=== PATIENT | male | born 1995 | race Caucasian/White ===

== ENCOUNTER 2017-03-27 15:18 | Emergency (ER) | payer OTHER ==
[~2017-03-27] VITALS: Wt 73.8 kg
[2017-03-27] MEDS ORDERED: ONDANSETRON 4 MG INJ IV STA (15:49)
[2017-03-27] MEDS ORDERED: SOD CHLORIDE 0.9% 1,000 ML IV STA (15:49)
[2017-03-27] MEDS ORDERED: LIDOCAINE/MYLANTA 40 ML BTL PO ONE (16:00)
[2017-03-27] MEDS ORDERED: PANTOPRAZOLE 40 MG INJ IV ONE (16:00)
--- NOTE | 2017-03-27 16:03 | ERD ---
ER Documentation Chief Complaint Chief Complaint "LITTLE" BIT OF BLOOD IN STOOL, ABD PAIN HPI This 22-year-old otherwise healthy male who presents the emergency department for complaints of possible blood in his stool and abdominal pain. Patient states that yesterday he ovarian cyst burning epigastric pain with associated bloating, belching and nausea which has improved today. He states that he noticed dark brown colored coffee-ground like substance in his stool 1. Patient states his pain is now a dull, 4 out of 10 burning epigastric pain with associated nausea. States he attempted to treat his symptoms with Tums with only minimal relief today. He denies fever, chills, vomiting. He admits to cigarette smoking and occasional alcohol use. He states he ran a marathon last weekend it exacerbated his symptoms. He denies any use of Pepto-Bismol, or eating red-colored foods in the past 2 days. ROS All systems reviewed and are negative except as per history of present illness. Medications Home Meds Active Scripts Metoclopramide* (Reglan*) 10 Mg Tablet, 10 MG PO Q6 Y for NAUSEA AND/OR VOMITING , #30 TAB Prov:VAN PEREZ PA-C 03/27/17 Omeprazole* (Omeprazole*) 20 Mg Capsule.dr, 20 MG PO DAILY, #30 Prov:VAN PEREZ PA-C 03/27/17 Famotidine* (Pepcid*) 20 Mg Tablet, 20 MG PO BID for 14 Days, TAB Prov:VAN PEREZ PA-C 03/27/17 Allergies Allergies: Coded Allergies: No Known Allergy (Unverified , 03/27/17) Physical Exam Vitals Vital Signs Date Time Temp Pulse Resp B/P Pulse Ox O2 Delivery O2 Flow Rate FiO2 03/27/17 15:26 99.5 91 20 111/64 100 Physical Exam Const: Developed, well-nourished, no acute distress Head: Atraumatic Eyes: Normal Conjunctiva ENT: Normal External Ears, Nose and Mouth. Neck: Full range of motion..~ No meningismus. Resp: Clear to auscultation bilaterally Cardio: Regular rate and rhythm, no murmurs Abd: Soft, diffuse mild tenderness, non distended. Normal bowel sounds Skin: No petechiae or rashes Back: No midline or flank tenderness Ext: No cyanosis, or edema Neur: Awake and alert Psych: Normal Mood and Affect Result Diagram: 03/27/17 1630 03/27/17 1630 Results 24 hrs Laboratory Tests Test 03/27/17 16:30 White Blood Count 10.910^3/ul Red Blood Count 4.9410^6/ul Hemoglobin 15.1g/dl Hematocrit 44.9% Mean Corpuscular Volume 90.9fl Mean Corpuscular Hemoglobin 30.6pg Mean Corpuscular Hemoglobin Concent 33.6g/dl Red Cell Distribution Width 12.6% Platelet Count 51839^3/UL Mean Platelet Volume 10.9fl Neutrophils % 68.9% Lymphocytes % 21.0% Monocytes % 8.6% Eosinophils % 0.8% Basophils % 0.4% Nucleated Red Blood Cells % 0.0/100WBC Neutrophils # 7.510^3/ul Lymphocytes # 2.310^3/ul Monocytes # 0.910^3/ul Eosinophils # 0.110^3/ul Basophils # 0.010^3/ul Nucleated Red Blood Cells # 0.010^3/ul Urine Color YELLOW Urine Clarity SLIGHTLY CLOUDY Urine pH 6.0 Urine Specific [place] 1.023 Urine Ketones NEGATIVEmg/dL Urine Nitrite NEGATIVEmg/dL Urine Bilirubin NEGATIVEmg/dL Urine Urobilinogen NEGATIVEmg/dL Urine Leukocyte Esterase NEGATIVELeu/ul Urine Microscopic RBC 1/HPF Urine Microscopic WBC 1/HPF Urine Bacteria FEW/HPF Urine Mucus FEW/HPF Urine Hemoglobin NEGATIVEmg/dL Urine Glucose NEGATIVEmg/dL Urine Total Protein NEGATIVEmg/dl Sodium Level 145mmol/L Potassium Level 3.7mmol/L Chloride Level 107mmol/L Carbon Dioxide Level 24mmol/L Anion Gap 18 Blood Urea Nitrogen 13mg/dl Creatinine 0.97mg/dl Glucose Level 92mg/dl Calcium Level 9.4mg/dl Total Bilirubin 0.4mg/dl Direct Bilirubin 0.00mg/dl Indirect Bilirubin 0.4mg/dl Aspartate Amino Transf (AST/SGOT) 68IU/L Alanine Aminotransferase (ALT/SGPT) 31IU/L Alkaline Phosphatase 69IU/L Total Protein 8.0g/dl Albumin 5.0g/dl Globulin 3.00g/dl Albumin/Globulin Ratio 1.66 Lipase 57U/L Current Medications Medications (Trade) Dose Ordered Sig/Akin Route PRN Reason Start Time Stop Time Status Last Admin Dose Admin Sodium Chloride (NS) 1,000 ml @ 1,000 mls/hr Q1H STAT IV 03/27/17 15:49 03/27/17 16:48 DC 03/27/17 16:20 Ondansetron HCl (Zofran Inj) 4 mg ONCE STAT IV 03/27/17 15:49 03/27/17 15:53 DC 03/27/17 16:19 Pantoprazole (Protonix Iv) 40 mg ONCE ONCE IV 03/27/17 16:00 03/27/17 16:01 DC 03/27/17 16:19 Miscellaneous Medication (Gi Cocktail (2)) 40 ml ONCE ONCE PO 03/27/17 16:00 03/27/17 16:01 DC 03/27/17 16:19 Procedures/[facility] There is an otherwise healthy 22-year-old male who presents the emergency department for complaints of epigastric pain followed by a small amount of what looked like darkened blood in his stool since today. Upon arrival patient well- appearing and nontoxic. Vital signs reviewed and within normal limits upon arrival. Physical exam evidence of abdominal tenderness. CBC showed no evidence of severe systemic infection or severe anemia. With mild leukocytosis. CMP showed no evidence of electrolyte abnormalities, severe acidosis, alkalosis , renal failure, or liver disease. Sodium slightly elevated indicating possible dehydration. Lipase showed no evidence of acute pancreatitis. UA showed no evidence of acute infection or hematuria. GI cocktail, IV fluids and Protonix while in the emergency department. Patient reported significant improvement of symptoms post IV treatment. Guaiac stool sample was negative for occult blood. History and physical exam consistent with epigastric abdominal pain, nausea, and bloating. Differential diagnosis includes but not limited GERD, peptic ulcer disease, bleeding ulcer, GI bleed, cholecystitis, pancreatitis, partial bowel obstruction, diverticulitis, acute appendicitis, viral syndrome. Based on patient's history of present illness and physical examination the decision was made to discharge. The patient was re-evaluated after ED treatment and stabilizing measures, and symptoms have improved. There is no evidence of life threatening injuries or illnesses at this time. On re-examination, patient resting in no distress, stable vital signs, reports feeling better and safe for discharge with outpatient follow up with PMD in 1-2 days. Patient given return precautions. I have recommended fluids, Motrin, Tylenol, and antacid medication. She agrees with plan for discharge with follow -up to primary care provider. All laboratory was provided to patient. Departure Diagnosis: Primary Impression: Abdominal pain Abdominal location: epigastric Qualified Code: R10.13 - Epigastric pain Additional Impression: Nausea VAN PEREZ PA-C Mar 27, 2017 16:03
[2017-03-27 16:43] LABS: BASOPHILS % 0.4 % (0.0-2.0); EOSINOPHILS # 0.1 10^3/ul (0.0-0.5); EOSINOPHILS % 0.8 % (0.0-7.0); HEMATOCRIT 44.9 % (42.0-52.0); HEMOGLOBIN 15.1 g/dl (14.0-18.0); LYMPHOCYTES # 2.3 10^3/ul (0.8-2.9); MEAN CORPUSCULAR HEMOGLOBIN 30.6 pg (29.0-33.0); MEAN CORPUSCULAR HGB CONC 33.6 g/dl (32.0-37.0); MEAN CORPUSCULAR VOLUME 90.9 fl (82.0-101.0); MEAN PLATELET VOLUME 10.9 fl (7.4-10.4); MONOCYTE # 0.9 10^3/ul (0.3-0.9); MONOCYTES % 8.6 % (0.0-11.0); NEUTROPHIL # 7.5 10^3/ul (1.6-7.5); NEUTROPHILS % 68.9 % (39.0-77.0); PLATELET COUNT 229 10^3/UL (140-415); RED BLOOD COUNT 4.94 10^6/ul (4.70-6.10); RED CELL DISTRIBUTION WIDTH 12.6 % (11.5-14.5); WHITE BLOOD COUNT 10.9 10^3/ul (4.8-10.8)
[2017-03-27 16:48] LABS: ADD UMIC NO; UR ASCORBIC ACID NEGATIVE (NEGATIVE); UR BACTERIA FEW /HPF (NONE SEEN); UR BILIRUBIN (Dip) NEGATIVE (NEGATIVE); UR BLOOD (Dip) NEGATIVE (NEGATIVE); UR CLARITY SLIGHTLY CLOUDY (CLEAR); UR COLOR YELLOW (YELLOW); UR GLUCOSE (Dip) NEGATIVE (NEGATIVE); UR KETONES (Dip) NEGATIVE (NEGATIVE); UR LEUKOCYTE ESTERASE (Dip) NEGATIVE Leu/ul (NEGATIVE); UR MUCUS FEW /HPF (NONE SEEN); UR NITRITE (Dip) NEGATIVE (NEGATIVE); UR RBC 1 /HPF (0-5); UR SPECIFIC GRAVITY (Dip) 1.023 (1.003-1.030); UR TOTAL PROTEIN (Dip) NEGATIVE (NEGATIVE); UR UROBILINOGEN (Dip) NEGATIVE (NEGATIVE)
[2017-03-27 17:03] LABS: ALBUMIN/GLOBULIN RATIO 1.66; BILIRUBIN,INDIRECT 0.4 mg/dl (0-1.1); BILIRUBIN,TOTAL 0.4 mg/dl (0.2-1.3); CALCIUM 9.4 mg/dl (8.4-10.2); CREATININE 0.97 mg/dl (0.61-1.24); POTASSIUM 3.7 mmol/L (3.5-5.1)
[2017-03-27] MEDS ORDERED: OMEP20CA16 PO (17:33)
[2017-03-27] MEDS ORDERED: METO10TA92 PO (17:33)
[2017-03-27] MEDS ORDERED: FAMO-96 PO (17:33)
[2017-03-27 17:41] VITALS: BP 125/69; PULSE 82; RESP 18; TEMP 98.9
== END 2017-03-27 17:47 | disposition home or self-care (01) ==
LOC: FTE 15:18
DX: R10.13 Epigastric pain (principal); R11.0 Nausea
CPT/HCPCS: 36415; 80053; 81001; 83690; 85025; 96374; 96375; 99284; C9113; J2405; J7030; 81003